=== PATIENT | female | born 1985 | race Caucasian/White ===

== ENCOUNTER 2020-08-01 14:17 | Inpatient (IN) ==
[2020-08-01] MEDS ORDERED: EPHEDrine 50 MG/ML VIAL IVP PRN (14:35)
[2020-08-01] MEDS ORDERED: Ondansetron 4 MG/2 ML VIAL IVP PRN (14:36)
[2020-08-01] MEDS ORDERED: Famotidine 20 MG/2 ML VIAL IVP PRN (14:36)
[2020-08-01] MEDS ORDERED: Naloxone 0.4 MG/ML INJ IVP PRN (14:36)
[2020-08-01] MEDS ORDERED: Metoclopramide 10 MG/2 ML VIAL IVP PRN (14:36)
[2020-08-01] MEDS ORDERED: Ringers Solution, Lactated 1,000 ML ONE (14:44)
[2020-08-01] MEDS ORDERED: Epidural Premix (fent/bupiv) 110 ML EP SCH (14:45)
[2020-08-01] MEDS ORDERED: Ringers Solution, Lactated 1,000 ML IVC SCH (14:45)
[2020-08-01 15:17] LABS: Basophils % 0.3 %; Eosinophils # 0.1 K/mcL (0.0-0.6); Eosinophils % 0.7 %; Hematocrit 41.3 % (35.3-44.9); Hemoglobin 13.6 g/dL (11.5-15.4); Immature Granulocytes % 0.7 % (0-4); Lymphocytes # 2.2 K/mcL (0.6-4.6); Lymphocytes % 22.7 %; Mean Corpuscular HGB Conc 32.9 g/dL (31.6-35.5); Mean Corpuscular Volume 88.1 fL (83.0-100.0); Mean Platelet Volume 11.8 fL (9.4-12.4); Monocytes # 0.8 K/mcL (0.0-1.3); Monocytes % 7.7 %; Neutrophils # 6.7 K/mcL (1.6-8.9); Platelet Count 211 K/mcL (140-400); Red Blood Count 4.69 M/mcL (3.82-4.97); Red Cell Distribution Width 13.8 % (11.5-14.5); Segmented Neutrophils % 67.9 %; White Blood Count 9.8 K/mcL (4.3-11.1)
[2020-08-01 15:38] LABS: Amphetamine Screen,Urine Negative ng/mL (Cutoff=1000); Barbiturate Screen,Urine Negative ng/mL (Cutoff=200); Benzodiazepines Screen,Urine Negative ng/mL (Cutoff=200); Cannabinoid Screen,Urine Negative ng/mL (Cutoff = 50); Cocaine Screen,Urine Negative ng/mL (Cutoff= 300); Opiate Screen,Urine Negative ng/mL (Cutoff=300); Phencyclidine Screen,Urine Negative ng/mL (Cutoff=25)
[2020-08-01] MEDS ORDERED: Oxytocin 20 units/ LR 1000 mL 20 UNIT/1,000 ML BAG IVC ONE (18:21)
[2020-08-01] MEDS ORDERED: Acetaminophen 325 MG TABLET PO PRN (20:58)
[2020-08-01] MEDS ORDERED: Measles/Mumps/Rubella Vacc 0.5 ML VIAL SQ PRN (20:58)
[2020-08-01] MEDS ORDERED: Oxytocin 20 units/ LR 1000 mL 20 UNIT/1,000 ML BAG IVC SCH (20:58)
[2020-08-01] MEDS ORDERED: Lanolin 7 G OINT...G. TP PRN (22:24)
[2020-08-01] MEDS: Ibuprofen 600 MG TABLET PO PRN (22:27)
[2020-08-02] MEDS: Ibuprofen 600 MG TABLET PO PRN ×2 (06:00→16:11)
[2020-08-02 07:41] LABS: Basophils % 0.2 %; Eosinophils # 0.1 K/mcL (0.0-0.6); Eosinophils % 0.7 %; Hematocrit 34.2 % (35.3-44.9); Immature Granulocytes % 0.8 % (0-4); Lymphocytes # 1.8 K/mcL (0.6-4.6); Lymphocytes % 18.5 %; Mean Corpuscular HGB Conc 32.5 g/dL (31.6-35.5); Mean Corpuscular Hemoglobin 29.1 pg (28.0-33.3); Mean Corpuscular Volume 89.8 fL (83.0-100.0); Mean Platelet Volume 11.3 fL (9.4-12.4); Monocytes # 0.7 K/mcL (0.0-1.3); Monocytes % 7.5 %; Platelet Count 159 K/mcL (140-400); Red Blood Count 3.81 M/mcL (3.82-4.97); Red Cell Distribution Width 13.8 % (11.5-14.5); Segmented Neutrophils % 72.3 %; White Blood Count 9.7 K/mcL (4.3-11.1)
[2020-08-02 07:45] LABS: Hemoglobin 11.1 g/dL (11.5-15.4)
[2020-08-02] MEDS ORDERED: Prenatal Vit/FA 1 EACH TABLET PO SCH (09:00)
[2020-08-02 15:59] VITALS: BP 122/86
== END 2020-08-02 19:30 | disposition home or self-care (01) | DRG 560 ==
LOC: 1NENULAB 14:17 → 1NENUOBS 21:09
PROVIDERS: ADMIT Obstetrics & Gynecology; ATTEND Obstetrics & Gynecology